=== PATIENT | female | born 1995 | race Caucasian/White ===

== ENCOUNTER 2018-05-19 10:57 | Emergency (ER) | payer MEDICAID ==
--- NOTE | 2018-05-19 11:15 | ED.PDOC ---
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 Patient states she is 5-6 weeks by stated EGA and started having spotting 3 days ago. Yesterday considerably worsened and this morning she passed what felt like tissue and a large amount of blood clots. She is having some abdominal cramping but no overt pain. She did have an ultrasound that showed a gestational sac that was intrauterine a couple of weeks ago. Patient had 1 past without complications as normal vaginal delivery. She has no past medical history. No fevers, chills, nausea or vomiting. Timing/Duration: getting worse Quality: moderate, cramping Onset Location: suprapubic Radiation: none Activites at Onset: none Prior abdominal problems: none Sexual intercourse history: less than 2 months ago Improving Factors: nothing Worsening Factors: nothing Associated Symptoms: denies symptoms Review of Systems - Review of Systems Constitutional: States: no symptoms reported. Denies: chills, fever EENTM: States: no symptoms reported. Denies: eye pain, nose congestion, throat pain Respiratory: States: no symptoms reported. Denies: cough, short of breath, wheezing Cardiology: States: no symptoms reported. Denies: chest pain, palpitations Gastrointestinal/Abdominal: States: see HPI Genitourinary: States: see HPI Physical Exam - Physical Exam General Appearance: Alert, Anxious, No apparent distress Neck: non-tender, full range of motion, supple Cardiovascular/Respiratory: regular rate, rhythm, no M/R/G, normal peripheral pulses, normal breath sounds, no respiratory distress Gastrointestinal/Abdominal: normal bowel sounds, non tender, soft Pelvic Exam: blood - cervix is normal and closed with small amount of blood in the vault no discharge Progress - Progress Progress: 05/19/18 12:05 spoke with patient at length that this is a threatened AB and most likely she is miscarrying. However, with the os closed she will have to follow up to have the hormone level rechecked on Monday - Results/Orders Results/Orders: Laboratory Results WBC 5.1 K/mm3 (4.8-10.8) 05/19/18 11:11 RBC 4.41 M/mm3 (4.20-5.40) 05/19/18 11:11 Hgb 10.8 gm/dL (12.0-16.0) L 05/19/18 11:11 Hct 33.7 % (36.0-47.0) L 05/19/18 11:11 MCV 76.4 fl (81.0-99.0) L 05/19/18 11:11 MCH 24.4 pg (27.0-31.0) L 05/19/18 11:11 MCHC 32.0 g/dL (33.0-37.0) L 05/19/18 11:11 RDW 17.8 % (11.5-14.5) H 05/19/18 11:11 Plt Count 179 K/mm3 (130-400) 05/19/18 11:11 MPV 9.2 fl (7.40-10.4) 05/19/18 11:11 Absolute Neuts (auto) 3.20 K/uL (1.8-6.8) 05/19/18 11:11 Absolute Lymphs (auto) 1.60 K/uL (1.0-3.4) 05/19/18 11:11 Absolute Monos (auto) 0.30 K/uL (0.2-0.8) 05/19/18 11:11 Absolute Eos (auto) 0.10 K/uL (0.0-0.4) 05/19/18 11:11 Absolute Basos (auto) 0.00 K/uL (0.0-0.1) 05/19/18 11:11 Neutrophils % 62.6 % (42.0-78.0) 05/19/18 11:11 Lymphocytes % 30.8 % (20.0-50.0) 05/19/18 11:11 Monocytes % 5.1 % (2.0-9.0) 05/19/18 11:11 Eosinophils % 1.1 % (1.0-5.0) 05/19/18 11:11 Basophils % 0.4 % (0.0-2.0) 05/19/18 11:11 Beta HCG, Quant 866.0 mIU/mL (0-4.9) H 05/19/18 11:12 Patient ABO/Rh RH POSITIVE 05/19/18 11:11 Departure - Departure Clinical Impression: Threatened Disposition: Discharge to Home or Self Care Condition: Good Departure Forms: ED Discharge - Pt. Copy, Patient Portal Self Enrollment Instructions: DI for Threatened Diet: regular diet Additional Instructions: follow up on Monday with OB to recheck quant and follow up from ER Return to Er for severe pain, severe bleeding, dizziness or weakness
[2018-05-19 12:21] VITALS: TEMP 98.9; O2SAT 98
[2018-05-19 12:25] VITALS: BP 128/81
== END 2018-05-19 12:25 | disposition home or self-care (01) ==
LOC: ER 10:57
DX: O20.0 Threatened abortion (principal); Z3A.01 Less than 8 weeks gestation of pregnancy

== ENCOUNTER → 2019-03-04 | Outpatient (CLI) | payer MEDICAID ==
--- NOTE | 2019-03-04 14:31 | RAD ---
EXAM DESCRIPTION: Hip,Right 2 Views CLINICAL HISTORY: 23 years, Female, HIP PAIN COMPARISON: None TECHNIQUE: AP and frog leg lateral views of the hip FINDINGS: 2 views of the right or left hip reveal no fracture or dislocation. No lytic bone lesion. There is no joint space abnormality observed. IMPRESSION: Negative for fracture or dislocation. Electronically signed by: Berry Torrez MD 03/04/2019 2:29 PM [facility]
== END ==
LOC: RAD 12:13
PROVIDERS: ATTEND Nurse Practitioner
DX: M25.559 Pain in unspecified hip (principal)

== ENCOUNTER → 2019-08-13 | Outpatient (CLI) | payer OTHER | LOC: LAB.O 16:12 | PROVIDERS: ATTEND Internal Medicine Gastroenterology | DX: B18.2 Chronic viral hepatitis C (principal) ==